=== PATIENT | male | born 1995 | race African-American/Black ===

== ENCOUNTER 2023-12-26 14:50 | Emergency (ER) | payer SELFPAY ==
[2023-12-26] MEDS ORDERED: Ibuprofen 200 MG TAB ONE (16:39)
[2023-12-26] MEDS ORDERED: Lidocaine 4% Patch ONE (16:39)
== END 2023-12-26 17:38 | disposition home or self-care (01) ==
LOC: CSHERS 14:50
DX: S40.012A Contusion of left shoulder, initial encounter (principal); W18.30XA Fall on same level, unspecified, initial encounter; Y93.67 Activity, basketball
CPT/HCPCS: 99283

== ENCOUNTER 2024-11-24 06:07 | Emergency (ER) | payer SELFPAY ==
[2024-11-24 06:53] LABS: #Basophils 0.05 10x3/uL (0.0-0.2); #Eosinophils 0.13 10x3/uL (0.0-0.5); #Monocytes 0.40 10x3/uL (0.0-1.1); #Neutrophils 1.53 10x3/uL (1.5-8.4); %Basophils 1.5 % (0.0-2.0); %Eosinophils 3.8 % (0.0-6.0); %Lymphocytes 38.3 % (18.0-47.0); %Monocytes 11.7 % (0.0-10.0); %Neutrophils 44.7 % (40.0-75.0); Hematocrit 37.7 % (38.8-50.0); Hemoglobin 12.2 g/dL (13.5-17.5); Mean Corpuscular Hemoglobin 31.4 pg (27.0-33.0); Mean Corpuscular Volume 97.2 fL (81.2-95.1); Platelet Count 220 10x3/uL (150-450); Red Blood Cell (RBC) Count 3.88 10x6/uL (4.32-5.72); White Blood Cell (WBC) Count 3.42 10x3/uL (3.5-10.5)
[2024-11-24 07:06] LABS: Anion Gap 12 mmol/L (10-20); BUN (Urea Nitrogen) 10 mg/dL (8.9-20.6); Calc. Creatinine Clearance 0 mL/min (70-130); Calcium 8.8 mg/dL (7.8-10.44); Carbon Dioxide 24 mmol/L (22-29); Chloride 110 mmol/L (98-107); Glucose 91 mg/dL (70-105); Potassium 4.2 mmol/L (3.5-5.1); Sodium 142 mmol/L (136-145)
[2024-11-24 07:09] LABS: Acetaminophen Less than 10 mcg/mL (Less than 10); Salicylate Less than 8.0 mg/dL (Less than 8.0)
== END 2024-11-24 09:41 ==
LOC: CSHERS 06:07
DX: R53.83 Other fatigue (principal); R55 Syncope and collapse; F17.210 Nicotine dependence, cigarettes, uncomplicated
CPT/HCPCS: 36415; 80048; 80307; 85025; 93005; 99284